=== PATIENT | female | born 1985 | race Hispanic/Latino ===

== ENCOUNTER 2022-07-28 11:55 | Emergency (ER) | payer MEDICARE ==
[~2022-07-28] VITALS: Ht 165.1 cm; Wt 72.6 kg
[2022-07-28] MEDS ORDERED: PROVENTIL HFA6.7 GM INH (12:13)
[2022-07-28] MEDS ORDERED: DEXAMETHASONE 4 MG TAB PO STA (12:15)
[2022-07-28] MEDS ORDERED: MUCINEX DM ER1 EACH PO (12:55)
== END 2022-07-28 13:22 | disposition home or self-care (01) ==
LOC: ER 12:07
DX: R05.9 Cough, unspecified (principal); R06.02 Shortness of breath; R06.2 Wheezing; Z87.891 Personal history of nicotine dependence
CPT/HCPCS: 71045; 99283